=== PATIENT | female | born 2000 | race Caucasian/White ===

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

== ENCOUNTER 2018-07-26 21:24 | Emergency (ER) | payer BC ==
[~2018-07-26] VITALS: Ht 162.6 cm; Wt 77.1 kg
[~2018-07-26 21:24] MED LIST changes: +CEFP200 PO; +Depo-Subq104 MG/0.6; +IBUP800 PO; +ONDA4ODT MM; +Pyridium100 MG PO
[2018-07-26 23:14] LABS: Source, Urine Clean Catch
[2018-07-26 23:18] LABS: Appearance, Urine Clear (Clear); Bilirubin, Urine Neg (Neg); Blood, Urine Neg (Neg); Color, Urine Yellow (P-Yellow); Glucose Qualitative, Urine Neg (Neg); Ketones, Urine Neg (Neg); Leukocyte Esterase, Urine 2+ (Neg); Nitrite, Urine Neg (Neg); Protein, Urine Neg (Neg); Urobilinogen, Urine 1+ (Normal)
[2018-07-26 23:23] LABS: Bacteria Many /hpf; Red Blood Cells, Urine 0-2 /hpf (0-2); Squamous Epithelial Cells Few /hpf (Few); White Blood Cells, Urine 50-100 /hpf (0-5)
[2018-07-26 23:24] LABS: Mucus Light (0-Heavy)
[2018-07-27 00:31] LABS: BASOPHILS ABSOLUTE AUTO 0.02 K/mm3 (0.00-0.23); BASOPHILS PERCENT AUTO 0 % (0-2); EOSINOPHILS ABSOLUTE AUTO 0.23 K/mm3 (0.00-0.68); EOSINOPHILS PERCENT AUTO 3 % (0-6); Hematocrit 38.2 % (33.0-51.0); Hemoglobin 12.2 g/dL (11.5-16.0); IMMATURE GRAN ABSOLUTE AUTO 0.02 K/mm3 (0.00-0.10); IMMATURE GRAN PERCENT AUTO 0 % (0-1); LYMPHOCYTES ABSOLUTE AUTO 2.98 K/mm3 (0.84-5.20); LYMPHOCYTES PERCENT AUTO 37 % (21-46); MONOCYTES ABSOLUTE AUTO 0.49 K/mm3 (0.16-1.47); MONOCYTES PERCENT AUTO 6 % (4-13); Mean Corpuscular HGB 27.4 pg (26.0-34.0); Mean Corpuscular HGB Conc 31.9 g/dL (31.5-36.5); Mean Corpuscular Volume 86 fL (80-100); Mean Platelet Volume 11.4 fL (9.1-12.4); NEUTROPHILS ABSOLUTE AUTO 4.26 K/mm3 (1.96-9.15); NEUTROPHILS PERCENT AUTO 53 % (41-73); Platelet Count 241 K/mm3 (150-400); RDW Coefficient Variation 12.5 % (11.7-14.2); Red Blood Cell Count 4.45 M/mm3 (3.80-5.20)
[2018-07-27 00:52] LABS: Alanine Aminotransfer (ALT/SGP 46 U/L (12-78); Albumin, Blood 3.2 g/dL (3.4-5.0); Albumin/Globulin Ratio 0.9 (0.8-1.8); Alk Phos 76 U/L (45-116); Anion Gap 5 mmol/L (6-16); Aspartate Aminotrans (AST/SGOT 14 U/L (12-37); Bilirubin, Total 0.4 mg/dL (0.1-1.0); Blood Urea Nitrogen 16 mg/dL (8-21); CO2, Blood 27 mmol/L (21-32); Calcium, Blood 8.5 mg/dL (8.5-10.1); Chloride, Blood 111 mmol/L (98-108); Creatinine, Blood 0.84 mg/dL (0.40-1.00); Globulin, Blood 3.7 g/dL (2.2-4.0); Glomerular Filtration Rate >60 (60-); Glucose, Blood 88 mg/dL (70-99); Potassium, Blood 3.9 mmol/L (3.5-5.5); Sodium, Blood 143 mmol/L (136-145); Total Protein, Blood 6.9 g/dL (6.4-8.2)
[2018-07-27] MEDS ORDERED: Keflex500 MG PO (01:08)
[2018-07-27] MEDS ORDERED: ONDA4ODT MM (01:08)
== END 2018-07-27 01:56 | disposition home or self-care (01) ==
LOC: ER 21:24
PROVIDERS: Physician Assistant
DX: N39.0 Urinary tract infection, site not specified (principal); F17.210 Nicotine dependence, cigarettes, uncomplicated
CPT/HCPCS: 72170; 80053; 81001; 81025; 83690; 85025; 87086; 87147; 96365; 96375; 99284-25; J0696; J1885

== ENCOUNTER 2022-07-13 21:27 | Emergency (ER) | payer SELFPAY ==
[~2022-07-13] VITALS: Ht 162.6 cm; Wt 63.5 kg
[~2022-07-13 21:27] MED LIST changes: +BACTRIM DS TAB1 EAC1 PO; +CEPH500 PO; +Keflex500 MG PO
== END 2022-07-13 22:33 | disposition home or self-care (01) ==
LOC: ER 21:27
DX: F11.10 Opioid abuse, uncomplicated (principal); R06.02 Shortness of breath; T40.2X1A Poisoning by other opioids, accidental (unintentional), initial encounter; F17.210 Nicotine dependence, cigarettes, uncomplicated; Z88.5 Allergy status to narcotic agent
CPT/HCPCS: 99284

== ENCOUNTER 2024-07-22 18:27 | Emergency (ER) | payer OTHER, BC ==
[~2024-07-22] VITALS: Ht 162.6 cm; Wt 73.5 kg
[2024-07-22 18:33] VITALS: BP 115/72
== END 2024-07-22 19:15 | disposition home or self-care (01) ==
LOC: ER 18:27
DX: N92.6 Irregular menstruation, unspecified (principal); F17.210 Nicotine dependence, cigarettes, uncomplicated; Z88.5 Allergy status to narcotic agent
CPT/HCPCS: 99283